=== PATIENT | male | born 1935 | race Caucasian/White ===

== ENCOUNTER 2022-11-13 06:11 | Day surgery (SDC) | payer MEDICARE, SELFPAY ==
[2022-11-13] VITALS (13 sets, daily range): BP systolic 131–151; BP diastolic 69–85; PULSE 58–65; RESP 14–16; TEMP 36.1–36.6; O2SAT 94–98; BMI 26.9
[2022-11-13] MEDS: LACTATED RINGERS 1000 ML 1,000 ML 100 ML IV (06:45)
[2022-11-13] MEDS: SODIUM CHLORIDE 0.9 % (FLUSH) 10 ML SYRINGE IVF (06:45)
[2022-11-13] MEDS: CLINDAMYCIN 900 MG/50 ML-D5W IVPB (07:35)
--- NOTE | 2022-11-13 07:46 | W.ANESCHARGE ---
Anesthesia Charges Start Date/Time Anesthesia Start Date: 11/13/22 Anesthesia Start Time: 07:27 Stop Date/Time Anesthesia Stop Date: 11/13/22 Anesthesia Stop Time: 08:51 Summary Extremes of Age - Over 70 or under 1: MDA
[2022-11-13] MEDS: BUPIVACAINE 0.25% 30 ML INJECTION (07:50)
--- NOTE | 2022-11-13 08:47 | P.GSOP_ITS ---
Operative Note Pre-op diagnosis: Right inguinal hernia Post-op diagnosis: Right inguinal hernia, indirect Type of Procedure: Laparoscopic right inguinal hernia repair with placement of mesh Indications: Patient is an 87-year-old male presented to clinic with a symptomatic right inguinal hernia. Please see consultation note for full discussion, as well as treatment options. Risks and benefits of operative intervention were discussed at length with the patient. Risks included but was not limited to: Bleeding, infection, risk of damage to surrounding structures, possible need for add itional procedures, possible need to convert to an open operation and postoperative complications such as pneumonia, pulmonary emboli or VT. All questions and concerns were addressed with the patient agreeing to proceed. Procedure Description: After discussing the risks and benefits of the procedure, the patient signed informed consent.? The operative site was marked and the patient was brought to the operating room and placed on the operating table in supine position.? Care was taken to pad the patient's pressure points.?? The patient was then intubated by anesthesia.?? The operative site was then prepped and draped in the usual sterile fashion.? A time-out was then performed. A curvilinear incision was made below the umbilicus. Dissection was carried down to subcutaneous tissue until the anterior rectus fascia was encountered. This was incised off the midline. The rectus muscles were then retracted exposing the posterior fascia. A space maker port with a dissecting balloon was then introduced. The preperitoneal space was inflated under direct vision. The balloon was then removed and the preperitoneal space insufflated. A 10 mm 30 degree scope was then advanced and the area was surveyed for bleeding. Dissection began on the right side. Waqar's ligament and the pubic bone was exposed medially. Following this dissection was carried out laterally. An indirect defect was noted. The sac was dissected free from the cord structures using a combination of sharp and blunt dissection. Once the sac was completely reduced, the cord structures were dissected circumfrentially and a piece of Parietex mesh for the appropriate side was placed into the abdomen. This was positioned around the cord structures. A Tacker was used to attach the mesh medially at Waqar's ligament. Once this was completed the sac was placed on top of the mesh and the preperitoneal space desufflated under direct vision. The ports were removed. The fascia from the infraumbilical port was closed with 0 Vicryl. The skin incisions were closed with absorbable subcuticular suture. Sterile dressings were then applied. The scrotum was examined to ensure that both testicles were down. Instrument sponge and needle counts were correct at the end of the case. ? The patient was then woken and transported to the recovery area in stable condition. ? The patient tolerated the procedure well. Findings: Right indirect inguinal hernia Anesthesia: GETA Surgeon: Rupal Lorenzo MD Estimated blood loss (mL): 5 Condition: stable Disposition: PACU
--- NOTE | 2022-11-13 10:05 | W.ANESCHARGE ---
Anesthesia Charges Start Date/Time Anesthesia Start Date: 11/13/22 Anesthesia Start Time: 07:27 Stop Date/Time Anesthesia Stop Date: 11/13/22 Anesthesia Stop Time: 08:51
== END 2022-11-13 10:57 | disposition home or self-care (01) ==
PROVIDERS: PCP Family Medicine; Visit Provider Surgery
PROC: (CPT 49650; principal; 2022-11-13 07:30)
DX: K40.90 Unilateral inguinal hernia, without obstruction or gangrene, not specified as recurrent (principal)
CPT/HCPCS: 49650; 00830; 00860; 82962; 99100; C1781; J0330; J0665; J1100; J1885; J2405; J2704; J3010; J3490; J7120; S0077

== ENCOUNTER 2023-02-27 12:30 | Outpatient (RCR) | payer MEDICARE, SELFPAY ==
--- NOTE | 2023-01-16 10:26 | PT.OPEX ---
PT [place] Outpatient Eval PT [facility] Outpatient Eval Start: 01/16/23 07:50 Freq: Status: Active Protocol: Document 01/16/23 07:51 ENM (Rec: 01/16/23 09:59 ENM [id number]) E-signed By Ban Dangelo, DPT Physical Therapy Outpatient Evaluation Insurance Information Recert Due Date 04/10/23 Insurance Name Medicare B Medical Diagnosis other unspecified enthesopathies of left lower limb, excluding foot left hip abductor tendinitis vs tear Treating Diagnosis impaired gait, left hip/leg pain, decreased hip strength, hip flexor tightness Referring MD Reddy Subjective Subjective Patient presents to PT for complaint of left hip pain. Initially he thought the pain was coming from his knee but went to see and was told that he may have an abductor tear. He is not able to walk very long due to the pain in his left hip. Tylenol helps but does not take all the pain away. Sitting does not cause the pain and is helping in easing the discomfort but if he sits >60 mins then it is really painful . With walking every step hurts because of this he started to use a cane. Can only walk a few minutes before having to sit down. He is able to go up the stairs but one at a time now due to the weakness in the left leg. Pains do not go down past the knee but vary between the side of the hip and medial thigh. He used to stay active walking /hiking or playing golf but it is limited now due to pains. He notes that he fell coming out of the shower last week which is now contributing to stiffness in the back. Also notes that he had hernia surgery in November. PMHx: diabetes, heart condition, HTN, arthritis, hernia surgery November 2022, R knee replacement Imaging: show moderate osteoarthrosis left hip seen best on lateral radiograph with posterior narrowing of the joint space. Small osteophytes. Otherwise, no acute fractures avulsions. No signs of AVN. Pain Comments at its best: none at its worse: 4-5/10 easing: tylenol, sitting aggravating: walking, standing , stairs Current Work Status Retired Objective Other/Pertinent Objective ROM: AROM hip flexion WNL no pain IR 25% limited B, pain on L side ER 25% limited B Lumbar FF limited to mid bundy, no pain with repeated movement or overpressure ext 25% limited no pain rot no pain WNL strength: hip flexors L 4/5 R 4+/5 knee extensors L 4+/5 R 5/5 hip abductors + for pain 3+/5 on L palpation/joint mobility: + for pain with palpation to L ITB, glute med and TFL gait/ambulation: Patient ambulates with antalgic gait pattern and use of SEC SLS + for pain and contralateral hip drop special tests: SVETA ++ for pain in L glute, slight pain in R glute when performed FADDIR - LEONEL- elys moderate hip flexor tightness bilaterally Functional Test Performed & Score LEFS: 30 Assessment Assessment/Impression Patient is an 87 year old male presenting with left hip and leg pain. Their primary complaint is of increasing significant pain with ambulation, stairs or standing . The pain is now limiting his ability to walk with his or participate in golfing. Xray imaging notable for moderate OA although MD suspects hip abductor tear as the cause of symptoms. Upon assessment patients concordant pains brought on with L SLS, resisted left hip abduction, SVETA and end range hip IR. Notable tissue tension and tenderness to palpation along L TFL, glute med and ITB. Gait impairments include decreased stance time of LLE and step length due to pain even with use of SEC for offloading. Gait pattern does improve within session after manual therapy to improve joint mobility and tissue tension. Shahab would greatly benefit from skilled PT to address impairments stated above in order to perform all functional mobility and recreational activities without significant discomfort or difficulty. Primary Functional Limitations walking, standing, stairs Plan of Care Rehabilitation Potential Good Rehabilitation Potential Comments Progress likely will be slow due to nature of injury Physical Therapy Goals In 8-10 visits: 1. Patient will be IND with HEP and self management of symptoms 2. Patient will improve L hip abductor strength to 4-/5 or greater for increased support with ambulation 3. Patient will be able to perform the stairs with step through mechanics for improved navigation of home environment 4. Patient will be able to walk with his with 2/10 or less hip pain following to progress toward prior level of activity 5. Patient will improve LEFS from 3080 to 39/80 (MDC 9) to demonstrate improvements in functional ability Coordination/Communication With Referral Source Treatment Plan/Direct Interventions Gait Training,Heat,Ice/Cold/ Vasopneumatic,Iontophoresis, Joint Mobilization,Manual Therapy,Neuromuscular Re-ed, Self-Care/Home Management, Therapeutic Activities, Therapeutic Exercises Frequency/Duration 1x a week for 8 weeks, as needed for 2-3 visits Patient Will Be Discharged From Therapy Completion of LTG(s), Independent w/HEP Evaluation Billing Untimed Code Treatment Minutes 33 Complexity Low Certification Information Initial Certification Date 01/16/23 Ending Certification Date 04/10/23 Provider Signature Shows Agreement With POC & Medical Necessity Physician Signature & Date Requested Please Sign/Date Here Physician Comment/Change : Physician NPI Number #
== END 2023-04-19 14:39 | disposition home or self-care (01) ==
PROVIDERS: PCP Family Medicine; Visit Provider Orthopaedic Surgery Sports Medicine
DX: M76.892 Other specified enthesopathies of left lower limb, excluding foot (principal); R26.9 Unspecified abnormalities of gait and mobility; R53.1 Weakness; M25.552 Pain in left hip; M79.605 Pain in left leg; Z51.89 Encounter for other specified aftercare
CPT/HCPCS: 97110; 97140; 97161

== ENCOUNTER 2024-10-19 14:30 | Outpatient (RCR) | payer MEDICARE, SELFPAY ==
--- NOTE | 2024-09-28 13:54 | PT.OPEX ---
PT [place] Outpatient Eval PT [facility] Outpatient Eval Start: 09/28/24 07:20 Freq: Status: Active Protocol: Document 09/28/24 13:04 DUNG (Rec: 09/28/24 13:51 DUNG [id number]) E-signed By John Castellon PT Physical Therapy Outpatient Evaluation Insurance Information Insurance Name Medicare B,[employer],Other; See Comments Insurance AARP Information/Comments Medical Diagnosis Lumbar DDD Back and LE pain Lumbar Scoliosis Treating Diagnosis Right gluteal spasms/pain Gluteal weakness Imaging Report 1. Lumbar scoliotic curvature convex to the left. Information Otherwise normal alignment. No fractures 2. Lumbar spondylosis. 3. At T12-L1, mild narrowing of the spinal canal and the neural foramina 4. At L1-2, mild narrowing of the left neural foramen 5. At L3-4, disc degeneration diffuse disc bulge. No narrowing of the spinal canal. Mild to moderate narrowing of the right neuroforamen. Potential impingement of the exiting right L3 nerve root 6. At L4-5, disc degeneration. Diffuse disc bulge and endplate osteophytic ridging asymmetric to the right. Mild narrowing of the spinal canal. Synovial cyst of the right facet joint may impinge upon the traversing right L5 nerve root. Moderate severe narrowing of the right neuroforamen and potential impingement of the exiting right L4 nerve root 7. At L5-S1, moderate to severe narrowing of the left neuroforamen. Potential impingement of the exiting left L5 nerve root Referring MD Maureen Subjective Preferred Name Shahab Jacky Pt. comes to therapy today with primary complaint of right gluteal and thigh pain and dysfunction that came on about 2 months ago. He has had a history of LBP problems but these symptoms are more recent. Aggravating factors include standing and walking with sitting being the alleviating factor. PMH includes; Type 2 diabetes, heart ablation in 1991, right TKA 8 years ago, HTN, and joint arthrosis. He denies much LBP currently but he feels like his right LE just doesn't work right with poor stamina when walking. He is able to walk for about 15 minutes max currently. He hasn't had any falls this past year but does feel like his balance is compromised. He had hip and lumbar X-rays and MRI done which reveal lumbar dysfunction with hip WNL. Mod/severe narrowing of right L4,5 neuroforamen is noted on MRI. His goal is for less pain and improved strength and stamina with walking. Pain Comments 6 Date of Last 09/11/24 Physician Visit Current Work Status Retired Objective Other/Pertinent Posture: Increased thoracic kyphosis/lumbar scoliosis Objective on X-ray LROM: flexion 75% with hamstring tightness; extension 50%; bilateral side bending 75% Hip ROM: right hip more limited than left hip with moderate ER restriction and gluteal tightness Slump: negative SLR: positive on right at 35 deg for right thigh pain and tightness Strength: bilateral gluteus medius weakness/core deconditioning Palpation: pain and hypertonus/TP/spasms of right gluteus medius, piriformis negative lumbar palpation with negative spring testing to lumbar spine segments Functional Test Mod Oswestry Performed & Score 22/50 44% Assessment Assessment/ 89 year old male who comes to therapy today with Impression primary complaint of right gluteal and thigh pain and weakness/stiffness/spasm symptoms during standing and walking that started about 1.5 to 2 months ago. Objective findings today include; pain, TP, and spasms of right gluteus medius/piriformis; limited right hip ER with muscle tightness; weakness of gluteus medius muscle; negative slump test; negative lumbar palpation and joint springing provocation to lower lumbar segments; and core deconditioning. He would benefit from skilled therapy working on hip, gluteal and lumbar regions. Primary Functional standing, walking Limitations Plan of Care Rehabilitation Excellent Potential Physical Therapy 1. Pt. will be independent with HEP for self Goals maintenance in 8-12 weeks. 2. Pt. will demonstrate improved core strength and right gluteal/hip mobility in 8-12 weeks. 3. Pt. will be able to stand for normal ADL's without increased pain in 8-12 weeks. 4. Pt. will be able to walk daily for exercise without right thigh pain symptoms in 8-12 weeks. Coordination/ Referral Source Communication With Treatment Plan/ Joint Mobilization,Manual Therapy,Neuromuscular Re-ed, Direct Interventions Therapeutic Exercises Frequency/Duration Weekly decreasing to every other week for 12 weeks. Patient Will Be Independent w/HEP,Independently Progressing Discharged From Therapy Evaluation Billing Complexity Moderate Certification Information Initial 09/28/24 Certification Date Ending Certification 12/27/24 Date Provider Signature Yes Required Provider Signature POC & Medical Necessity Shows Agreement With Physician NPI Number Write NPI# Here Physician Comment/ : Change Physician Signature Please Sign/Date Here & Date Requested
== END 2025-01-11 15:40 | disposition home or self-care (01) ==
PROVIDERS: PCP Family Medicine; Visit Provider Orthopaedic Surgery Sports Medicine
DX: M51.362 Other intervertebral disc degeneration, lumbar region with discogenic back pain and lower extremity pain (principal); M41.86 Other forms of scoliosis, lumbar region; Z51.89 Encounter for other specified aftercare
CPT/HCPCS: 97110; 97140; 97162